=== PATIENT | male | born 1945 | race Caucasian/White ===

== ENCOUNTER 2025-03-01 21:16 | Emergency (ER) | payer OTHER, MEDICAID ==
[~2025-03-01] VITALS: Ht 180.3 cm; Wt 85.7 kg
[2025-03-01 21:19] VITALS: TEMP 98.4
[2025-03-01] MEDS ORDERED: TDAP [DIPH/PERTUSSIS/TET] 0.5 ML VIAL IM ONE ×2 (22:49→23:00)
[2025-03-01 23:06] LABS: PLATELET COUNT (AUTO) 97 K/uL (150-450); RED BLOOD CELL COUNT(AUTO) 2.47 MIL/uL (4.5-6.0); RED CELL DISTRIBUTION WIDTH 19.4 % (11.5-15.0); WHITE BLOOD COUNT (AUTO) 5.5 K/uL (4.3-11.0)
[2025-03-01 23:12] LABS: CALCIUM, SERUM 8.7 mg/dL (8.5-10.1); CREATININE 4.0 mg/dL (0.6-1.3); SODIUM SERUM 139 mmol/L (136-145); UREA NITROGEN, BLOOD 26 mg/dL (7-18)
[2025-03-01 23:26] LABS: ASPARTATE AMINOTRANSFERASE 13 U/L (15-37); NT-PRO BNP > 25000 pg/mL (0-125); TOTAL PROTEIN, SERUM 7.3 g/dL (6.4-8.2)
[2025-03-01 23:44] LABS: APPEARANCE,URINE CLEAR (CLEAR); BLOOD, URINE 2+ Ery/uL (NEGATIVE); LEUKOCYTE ESTERASE ,URINE 3+ (NEGATIVE); NITRITE, URINE NEGATIVE (NEGATIVE); UGLUCOSE NEGATIVE (NEGATIVE)
[2025-03-01 23:45] LABS: ADD URINE CULTURE YES; SQUAMOUS EPITHELIAL CELL,UR None Seen /HPF (None Seen)
[2025-03-02 02:00] VITALS: BP 163/103; O2SAT 97
== END 2025-03-02 04:05 | disposition short-term general hospital (02) ==
LOC: ER 21:18
DX: S81.811A Laceration without foreign body, right lower leg, initial encounter (principal); I83.90 Asymptomatic varicose veins of unspecified lower extremity; E11.9 Type 2 diabetes mellitus without complications; E78.5 Hyperlipidemia, unspecified; I10 Essential (primary) hypertension; R29.6 Repeated falls; W06.XXXA Fall from bed, initial encounter; Y93.89 Activity, other specified; Y92.098 Other place in other non-institutional residence as the place of occurrence of the external cause; Y99.8 Other external cause status
CPT/HCPCS: 36415; 70450-TC; 71045-TC; 73590-TC; 80053-TC; 81001; 83880; 84484-TC; 85025-TC; 87086-TC; 90715

== ENCOUNTER 2025-03-26 19:08 | Inpatient (IN) | payer MEDICARE, OTHER ==
[~2025-03-26] VITALS: Ht 190.5 cm; Wt 93.4 kg
[2025-03-26] MEDS: IV NS 0.9% 500 ML BAG IV ONE ×2 (19:25→20:26)
[2025-03-26 19:33] LABS: RED BLOOD CELL COUNT(AUTO) 2.05 MIL/uL (4.5-6.0); RED CELL DISTRIBUTION WIDTH 18.1 % (11.5-15.0); WHITE BLOOD COUNT (AUTO) 6.0 K/uL (4.3-11.0)
[2025-03-26 19:40] LABS: CALCIUM, SERUM 8.6 mg/dL (8.5-10.1); CREATININE 4.3 mg/dL (0.6-1.3); SODIUM SERUM 135 mmol/L (136-145); UREA NITROGEN, BLOOD 46 mg/dL (7-18)
[2025-03-26 19:46] LABS: ASPARTATE AMINOTRANSFERASE 22 U/L (15-37); TOTAL PROTEIN, SERUM 7.4 g/dL (6.4-8.2)
[2025-03-26 19:49] LABS: PLATELET COUNT (AUTO) 126 K/uL (150-450)
[2025-03-26 19:53] LABS: INR 1.44 (0.91-1.10)
[2025-03-26 20:14] LABS: EOSINOPHILS % (MANUAL) 0 % (0-4); LYMPHOCYTES % (MANUAL) 9 % (16-48); MONOCYTES % (MANUAL) 10 % (0-11.0); NEUTROPHILS % (MANUAL) 81 (42-76)
[2025-03-26 20:15] LABS: BASOPHILS % (MANUAL) 0 % (0.0-2.0); PLATELET ESTIMATE DECREASED
[2025-03-26] MEDS ORDERED: DOSING PER PHARMACY-CEFEPIME IVPB XX PRN (22:00)
[2025-03-26] MEDS: ALBUMIN 25% 12.5 GM/50 ML BOTTLE IV ONE (22:00)
[2025-03-26] MEDS ORDERED: PHENYLEPHRINE 50 MG in IV NS 0.9% 250 ML IV PRN (22:00)
[2025-03-26] MEDS ORDERED: ACETAMINOPHEN 650 MG/SUPP.RECT RC PRN (22:00)
[2025-03-27] VITALS (15 sets, daily range): BP systolic 77–99; BP diastolic 43–82; TEMP 97.7–98.8; O2SAT 98–100
[2025-03-27] MEDS ORDERED: DOSING PER PHARMACY-CEFEPIME IVPB XX PRN
[2025-03-27] MEDS ORDERED: DOSING PER PHARMACY-VANCOMYCIN IV XX PRN
[2025-03-27] MEDS: VANCOMYCIN 1.5 GM in IV D5W 500 ML IV ONE (02:30)
[2025-03-27] MEDS: VANCOMYCIN 1 GM /D5W 250 ML PB IV ONE (03:20)
[2025-03-27] MEDS ORDERED: CEFEPIME 1 GM VIAL ONE (05:25)
[2025-03-27] MEDS: CEFEPIME 1 GM in IV D5W 50 ML IV SCH (06:09)
[2025-03-27] MEDS: PANTOPRAZOLE 40 MG/PACK PACK PO SCH (08:28)
[2025-03-27] MEDS ORDERED: EPOETIN ALFA (10,000 UNIT) 10,000 UNIT/ML VIAL SQ SCH (09:30)
[2025-03-27] MEDS: EPOETIN ALFA (10,000 UNIT) 10,000 UNIT/ML VIAL SQ ONE (10:01)
[2025-03-27 13:23] LABS: CALCIUM, SERUM 8.4 mg/dL (8.5-10.1); CREATININE 4.8 mg/dL (0.6-1.3); SODIUM SERUM 134.0 mmol/L (136-145); UREA NITROGEN, BLOOD 51.0 mg/dL (7-18)
[2025-03-27 13:28] LABS: PHOSPHORUS 3.6 mg/dL (2.5-4.9)
[2025-03-27] MEDS: ALBUMIN 25% 25 GM in PREMIX 1 EA IV PRN (14:48)
[2025-03-27 17:11] LABS: PLATELET COUNT (AUTO) 110 K/uL (150-450); RED CELL DISTRIBUTION WIDTH 17.3 % (11.5-15.0); WHITE BLOOD COUNT (AUTO) 5.0 K/uL (4.3-11.0)
[2025-03-27 17:15] LABS: RED BLOOD CELL COUNT(AUTO) 1.71 MIL/uL (4.5-6.0)
[2025-03-27] MEDS: VANCOMYCIN 500 MG in IV D5W 100 ML IV PRN (17:57)
[2025-03-27 18:44] LABS: EOSINOPHILS % (MANUAL) 1 % (0-4); LYMPHOCYTES % (MANUAL) 9 % (16-48); MONOCYTES % (MANUAL) 6 % (0-11.0); NEUTROPHILS % (MANUAL) 84 (42-76); PLATELET ESTIMATE DECREASED
[2025-03-27] MEDS ORDERED: ALBUMIN 25% 50 ML IV ONE (21:33)
[2025-03-27] MEDS: ALBUMIN 25% 12.5 GM/50 ML BOTTLE IV ONE (21:37)
[2025-03-27] MEDS: ACETAMINOPHEN 325 MG TABLET PO PRN (21:43)
[2025-03-28] VITALS (8 sets, daily range): BP systolic 74–97; BP diastolic 48–60; TEMP 97.5–98.8; O2SAT 100
[2025-03-28] MEDS ORDERED: CEFEPIME 1 GM in IV D5W 50 ML IV SCH (03:00)
[2025-03-28] MEDS: CEFEPIME 1 GM in IV D5W 50 ML IV SCH (05:44)
[2025-03-28 06:35] LABS: PLATELET COUNT (AUTO) 115 K/uL (150-450); RED CELL DISTRIBUTION WIDTH 17.6 % (11.5-15.0); WHITE BLOOD COUNT (AUTO) 5.0 K/uL (4.3-11.0)
[2025-03-28 06:40] LABS: CALCIUM, SERUM 8.1 mg/dL (8.5-10.1); CREATININE 4.8 mg/dL (0.6-1.3); SODIUM SERUM 138.0 mmol/L (136-145); UREA NITROGEN, BLOOD 50.0 mg/dL (7-18)
[2025-03-28 07:17] LABS: RED BLOOD CELL COUNT(AUTO) 1.80 MIL/uL (4.5-6.0)
[2025-03-28 11:29] LABS: EOSINOPHILS % (MANUAL) 3 % (0-4); LYMPHOCYTES % (MANUAL) 15 % (16-48); MONOCYTES % (MANUAL) 14 % (0-11.0); NEUTROPHILS % (MANUAL) 68 (42-76)
[2025-03-28 11:30] LABS: PLATELET ESTIMATE DECREASED
[2025-03-29] VITALS (42 sets, daily range): BP systolic 66–155; BP diastolic 33–106; TEMP 97.7–98.2; O2SAT 95–100
[2025-03-29 06:20] LABS: PLATELET COUNT (AUTO) 114 K/uL (150-450); RED CELL DISTRIBUTION WIDTH 17.4 % (11.5-15.0); WHITE BLOOD COUNT (AUTO) 6.1 K/uL (4.3-11.0)
[2025-03-29 06:21] LABS: CALCIUM, SERUM 8.4 mg/dL (8.5-10.1); CREATININE 5.5 mg/dL (0.6-1.3); SODIUM SERUM 135.0 mmol/L (136-145); UREA NITROGEN, BLOOD 60.0 mg/dL (7-18)
[2025-03-29 06:35] LABS: RED BLOOD CELL COUNT(AUTO) 1.87 MIL/uL (4.5-6.0)
[2025-03-29] MEDS: THERAHONEY GEL 1.5 OZ TUBE TP SCH ×2 (10:22→13:20)
[2025-03-29 10:32] LABS: EOSINOPHILS % (MANUAL) 5 % (0-4); LYMPHOCYTES % (MANUAL) 2 % (16-48); MONOCYTES % (MANUAL) 2 % (0-11.0); NEUTROPHILS % (MANUAL) 91 (42-76); PLATELET ESTIMATE DECREASED
[2025-03-29] MEDS: MIDODRINE HCL (5MG) 5 MG TABLET PO ONE (13:16)
[2025-03-29] MEDS: EPOETIN ALFA (10,000 UNIT) 10,000 UNIT/ML VIAL SQ SCH (14:37)
[2025-03-29] MEDS ORDERED: HEPARIN INFUSION/D5W 500 ML IV PRN (16:00)
[2025-03-29 16:10] LABS: INR 1.66 (0.91-1.10)
[2025-03-29] MEDS: NOREPINEPHRINE 8 MG in IV NS 0.9% 242 ML IV PRN (16:14)
[2025-03-29] MEDS: NOREPINEPHRINE 8MG/250ML RTU 250 ML IV ONE (19:33)
[2025-03-30] VITALS (99 sets, daily range): BP systolic 61–137; BP diastolic 27–118; TEMP 98–98.2; O2SAT 86–100
[2025-03-30 03:58] LABS: CALCIUM, SERUM 8.5 mg/dL (8.5-10.1); CREATININE 4.2 mg/dL (0.6-1.3); PLATELET COUNT (AUTO) 142 K/uL (150-450); RED BLOOD CELL COUNT(AUTO) 2.01 MIL/uL (4.5-6.0); RED CELL DISTRIBUTION WIDTH 17.6 % (11.5-15.0); SODIUM SERUM 137.0 mmol/L (136-145); UREA NITROGEN, BLOOD 44.0 mg/dL (7-18); WHITE BLOOD COUNT (AUTO) 8.8 K/uL (4.3-11.0)
[2025-03-30 06:21] LABS: EOSINOPHILS % (MANUAL) 3 % (0-4); LYMPHOCYTES % (MANUAL) 7 % (16-48); MONOCYTES % (MANUAL) 13 % (0-11.0); NEUTROPHILS % (MANUAL) 77 (42-76); PLATELET ESTIMATE DECREASED
[2025-03-30 17:52] LABS: OCCULT BLOOD STOOL NEGATIVE (NEGATIVE)
[2025-03-31] VITALS (99 sets, daily range): BP systolic 78–125; BP diastolic 46–88; TEMP 97.6–98.7; O2SAT 95–100
[2025-03-31 04:38] LABS: PLATELET COUNT (AUTO) 113 K/uL (150-450); RED CELL DISTRIBUTION WIDTH 18.9 % (11.5-15.0); RHEUMATOID FACTOR SCREEN NEGATIVE (NEGATIVE); WHITE BLOOD COUNT (AUTO) 6.6 K/uL (4.3-11.0)
[2025-03-31 04:44] LABS: RED BLOOD CELL COUNT(AUTO) 1.94 MIL/uL (4.5-6.0)
[2025-03-31 04:46] LABS: CALCIUM, SERUM 8.3 mg/dL (8.5-10.1); CREATININE 4.7 mg/dL (0.6-1.3); SODIUM SERUM 136 mmol/L (136-145); UREA NITROGEN, BLOOD 49 mg/dL (7-18)
[2025-03-31 04:51] LABS: IRON, SERUM 33 ug/dl (50-175)
[2025-03-31 05:17] LABS: EOSINOPHILS % (MANUAL) 5 % (0-4); LYMPHOCYTES % (MANUAL) 13 % (16-48); MONOCYTES % (MANUAL) 12 % (0-11.0); NEUTROPHILS % (MANUAL) 70 (42-76); PLATELET ESTIMATE DECREASED
[2025-03-31] MEDS: FOLIC ACID 1 MG TABLET PO SCH (09:42)
[2025-03-31 13:43] LABS: HIV-1/2 ANTIBODY NON REACTIVE (NONREACTIVE)
[2025-03-31] MEDS: EPOETIN ALFA (10,000 UNIT) 10,000 UNIT/ML VIAL SQ SCH (15:09)
[2025-03-31] MEDS: diphenhydrAMINE HCL ELIX 25 MG/10 ML UDC PO PRN (17:20)
[2025-04-01] VITALS (114 sets, daily range): BP systolic 67–187; BP diastolic 33–170; TEMP 97.5–98.5; O2SAT 91–100
[2025-04-01 04:53] LABS: CALCIUM, SERUM 8.6 mg/dL (8.5-10.1); CREATININE 3.9 mg/dL (0.6-1.3); SODIUM SERUM 137.0 mmol/L (136-145); UREA NITROGEN, BLOOD 40.0 mg/dL (7-18)
[2025-04-01 05:09] LABS: FOLIC ACID 6.5 ng/mL (>3.0); HEPATITIS B CORE AB, TOTAL Negative (Negative); IMMUNOGLOBULIN A, SERUM 353 mg/dL (61-437); IMMUNOGLOBULIN M, SERUM 118 mg/dL (15-143)
[2025-04-01 05:13] LABS: PLATELET COUNT (AUTO) 111 K/uL (150-450); RED BLOOD CELL COUNT(AUTO) 2.02 MIL/uL (4.5-6.0); RED CELL DISTRIBUTION WIDTH 17.8 % (11.5-15.0); WHITE BLOOD COUNT (AUTO) 7.3 K/uL (4.3-11.0)
[2025-04-01 05:54] LABS: BASOPHILS % (MANUAL) 2 % (0.0-2.0); LYMPHOCYTES % (MANUAL) 9 % (16-48); MONOCYTES % (MANUAL) 9 % (0-11.0); NEUTROPHILS % (MANUAL) 74 (42-76)
[2025-04-01 05:55] LABS: EOSINOPHILS % (MANUAL) 6 % (0-4); PLATELET ESTIMATE GIANT PLATELET SEEN
[2025-04-01 08:10] LABS: FREE KAPPA LT CHAINS SERUM 266.7 mg/L (3.3-19.4); FREE LAMBDA LT CHAIN SERUM 341.8 mg/L (5.7-26.3); KAPPA/LAMBDA RATIO SERUM 0.78 (0.26-1.65)
[2025-04-01 10:08] LABS: *ANA ANTI-CENTROMERE B AB <0.2 AI (0.0-0.9); *ANA ANTI-DNA(DS) AB, QN 3 IU/mL (0-9); *ANA ANTI-JO-1 <0.2 AI (0.0-0.9); *ANA ANTICHROMATIN ANTIBODY <0.2 AI (0.0-0.9); *ANA RNP ANTIBODIES 0.7 AI (0.0-0.9); *ANA SJOGREN'S ANTI-SS-A <0.2 AI (0.0-0.9); *ANA SJOGREN'S ANTI-SS-B <0.2 AI (0.0-0.9); *ANAANTI-SCLERODERMA-70 AB <0.2 AI (0.0-0.9); *ANASMITH AB <0.2 AI (0.0-0.9)
[2025-04-01] MEDS: SOD FERRIC GLUC 125 MG in IV NS 0.9% 100 ML IV SCH (14:40)
[2025-04-01] MEDS ORDERED: EPOETIN ALFA (20,000 UNIT) 20,000 UNIT/ML VIAL SQ SCH (15:00)
[2025-04-01] MEDS ORDERED: NEPRO VAN 237 ML CAN PO PRN (16:30)
[2025-04-02] VITALS (98 sets, daily range): BP systolic 77–128; BP diastolic 42–97; TEMP 97.9–98.6; O2SAT 95–100
[2025-04-02 05:22] LABS: CALCIUM, SERUM 8.3 mg/dL (8.5-10.1); CREATININE 4.6 mg/dL (0.6-1.3); SODIUM SERUM 138.0 mmol/L (136-145); UREA NITROGEN, BLOOD 42.0 mg/dL (7-18)
[2025-04-02 05:23] LABS: PLATELET COUNT (AUTO) 107 K/uL (150-450); RED CELL DISTRIBUTION WIDTH 18.3 % (11.5-15.0); WHITE BLOOD COUNT (AUTO) 6.3 K/uL (4.3-11.0)
[2025-04-02 05:58] LABS: RED BLOOD CELL COUNT(AUTO) 1.89 MIL/uL (4.5-6.0)
[2025-04-02 06:48] LABS: EOSINOPHILS % (MANUAL) 1 % (0-4); LYMPHOCYTES % (MANUAL) 6 % (16-48); MONOCYTES % (MANUAL) 6 % (0-11.0); NEUTROPHILS % (MANUAL) 87 (42-76); PLATELET ESTIMATE DECREASED
[2025-04-02] MEDS: MIDODRINE HCL (5MG) 5 MG TABLET PO SCH (10:12)
[2025-04-03] VITALS (74 sets, daily range): BP systolic 78–130; BP diastolic 42–82; TEMP 98–98.4; O2SAT 94–100
[2025-04-03 05:58] LABS: IRON, SERUM 43 ug/dl (50-175); PLATELET COUNT (AUTO) 128 K/uL (150-450); RED BLOOD CELL COUNT(AUTO) 2.09 MIL/uL (4.5-6.0); RED CELL DISTRIBUTION WIDTH 18.7 % (11.5-15.0); WHITE BLOOD COUNT (AUTO) 7.2 K/uL (4.3-11.0)
[2025-04-03 09:37] LABS: BASOPHILS % (MANUAL) 0 % (0.0-2.0); EOSINOPHILS % (MANUAL) 5 % (0-4); LYMPHOCYTES % (MANUAL) 12 % (16-48); MONOCYTES % (MANUAL) 14 % (0-11.0); NEUTROPHILS % (MANUAL) 69 (42-76); PLATELET ESTIMATE DECREASED
[2025-04-03] MEDS: MIDODRINE HCL (5MG) 5 MG TABLET PO SCH (12:55)
[2025-04-03] MEDS: ONDANSETRON HCL/PF 4 MG/2 ML VIAL IVP PRN (23:03)
[2025-04-04] VITALS (17 sets, daily range): BP systolic 91–108; BP diastolic 54–80; TEMP 97.9–98.1; O2SAT 90–100
[2025-04-04 05:43] LABS: CALCIUM, SERUM 8.2 mg/dL (8.5-10.1); CREATININE 4.2 mg/dL (0.6-1.3); SODIUM SERUM 137.0 mmol/L (136-145); UREA NITROGEN, BLOOD 36.0 mg/dL (7-18)
[2025-04-04 05:55] LABS: FIBRINOGEN ACTIVITY 200.0 Mg/dL (213-485); INR 1.5 (0.91-1.10)
== END 2025-04-04 19:50 | disposition short-term general hospital (02) | DRG 811 ==
LOC: ER 19:24 → TELE1 23:50 → ICU 03-29 16:07 → TELE1 04-04 15:04
PROVIDERS: ADMIT Registered Nurse Psychiatric/Mental Health; ATTEND Internal Medicine
PROC: 5A1D70Z Performance of Urinary Filtration, Intermittent, Less than 6 Hours Per Day (ICD-10-PCS; principal; 2025-03-27)
DX: D64.9 Anemia, unspecified (principal); N18.6 End stage renal disease; I13.2 Hypertensive heart and chronic kidney disease with heart failure and with stage 5 chronic kidney disease, or end stage renal disease; J90 Pleural effusion, not elsewhere classified; E44.0 Moderate protein-calorie malnutrition; I82.403 Acute embolism and thrombosis of unspecified deep veins of lower extremity, bilateral; E87.1 Hypo-osmolality and hyponatremia; I95.9 Hypotension, unspecified; E11.22 Type 2 diabetes mellitus with diabetic chronic kidney disease; E11.40 Type 2 diabetes mellitus with diabetic neuropathy, unspecified; E11.51 Type 2 diabetes mellitus with diabetic peripheral angiopathy without gangrene; E78.5 Hyperlipidemia, unspecified; E88.09 Other disorders of plasma-protein metabolism, not elsewhere classified; I48.91 Unspecified atrial fibrillation; Z89.411 Acquired absence of right great toe; Z86.73 Personal history of transient ischemic attack (TIA), and cerebral infarction without residual deficits; Z99.2 Dependence on renal dialysis; R55 Syncope and collapse; E83.89 Other disorders of mineral metabolism; Z68.25 Body mass index [BMI] 25.0-25.9, adult; L89.156 Pressure-induced deep tissue damage of sacral region; I35.0 Nonrheumatic aortic (valve) stenosis; I27.20 Pulmonary hypertension, unspecified; Z95.828 Presence of other vascular implants and grafts; Z53.1 Procedure and treatment not carried out because of patient's decision for reasons of belief and group pressure; E11.621 Type 2 diabetes mellitus with foot ulcer; L97.512 Non-pressure chronic ulcer of other part of right foot with fat layer exposed; S80.811A Abrasion, right lower leg, initial encounter; X58.XXXA Exposure to other specified factors, initial encounter; Y93.9 Activity, unspecified; Y92.009 Unspecified place in unspecified non-institutional (private) residence as the place of occurrence of the external cause; D69.6 Thrombocytopenia, unspecified; Z66 Do not resuscitate; I50.9 Heart failure, unspecified
CPT/HCPCS: 36415; 71045-TC; 73630-TC; 80048-TC; 80076-TC; 80202-TC; 82272-TC; 82607-TC; 82728-TC; 82784; 83540-TC; 83605-TC; 83735-TC; 84100-TC; 84155; 84165; 84439-TC; 84443-TC; 84484-TC; 85027-TC; 85045-TC; 85396; 85730-TC; 86140-TC; 86225; 86235; 86317; 86334; 86431-TC; 86704; 86803; 86850-TC; 87040-TC; 87081-TC; 87340; 87806; 90935-TC; 93307-TC; 93970-TC; 93971-TC; A4216; A4223; A6253; A6403; G0378; J0692; J0885; J1644; J2405; J2916; J3373; J3374; J7030; J7040; J7050; J7060; P9047; Q0163